=== PATIENT | male | born 1955 | race Caucasian/White ===

== ENCOUNTER 2023-04-23 05:53 | Day surgery (SDC) | payer BC, MEDICARE ==
[2023-04-23] MEDS ORDERED: Dextrose 5%-0.45% NaCl 1,000 ML IV SCH (06:00)
[2023-04-23] MEDS ORDERED: Midazolam 1 MG/ML 2 ML SDV ONE (06:21)
[2023-04-23] MEDS ORDERED: fentaNYL 100 MCG/2 ML SDV ONE (06:22)
[2023-04-23] MEDS ORDERED: fentaNYL 100 MCG/2 ML SDV IV ONE ×3 (06:49→07:10)
[2023-04-23] MEDS ORDERED: Midazolam 1 MG/ML 2 ML SDV IV ONE ×6 (06:50→07:09)
== END 2023-04-23 08:31 | disposition home or self-care (01) ==
LOC: DL.ENDO 05:53
PROVIDERS: ATTEND Internal Medicine Gastroenterology
DX: Z12.11 Encounter for screening for malignant neoplasm of colon (principal)
CPT/HCPCS: J2250; J3010; J7042